=== PATIENT | male | born 1940 | race Native Hawaiian/Other Pacific Islander ===

== ENCOUNTER 2017-02-08 10:50 | Outpatient (CLI) | payer OTHER ==
[~2017-02-08 10:50] MED LIST: ALBU0.5N6 INH; ASA LO-DOSE81 MG PO; MELO-13 PO; METO5TAB38; NIACIN500 M2 PO; OXYB5TAB56; POT CHLORIDE10 ME1 PO; ROPINIROLE1 MG PO; SIMV40TA57 PO; SOTALOL AF120 MG PO; SPIR25TA66; UNITHROID50 MCG PO; XOPENEX HFA
[2017-02-08 11:35] LABS: POTASSIUM 3.3 mmol/L (3.6-5.2)
== END 2017-02-08 19:04 | disposition home or self-care (01) ==
LOC: LABW 10:50
PROVIDERS: Urology
DX: N39.0 Urinary tract infection, site not specified (principal); D41.01 Neoplasm of uncertain behavior of right kidney
CPT/HCPCS: 36415; 80053

== ENCOUNTER 2017-07-29 15:16 | Outpatient (CLI) | payer OTHER ==
[2017-07-29 16:23] LABS: POTASSIUM 3.9 mmol/L (3.6-5.2)
== END 2017-07-29 19:28 | disposition home or self-care (01) ==
LOC: LABW 15:16
PROVIDERS: Urology
DX: R31.29 Other microscopic hematuria (principal)
CPT/HCPCS: 36415; 80053

== ENCOUNTER 2017-08-13 08:54 | Outpatient (CLI) | payer OTHER ==
[2017-08-13 09:34] LABS: PLATELET COUNT 241 K/uL (142-355)
[2017-08-13 09:45] LABS: POTASSIUM 3.5 mmol/L (3.6-5.2)
== END 2017-08-13 19:02 | disposition home or self-care (01) ==
LOC: LABW 08:54
PROVIDERS: Internal Medicine Nephrology
DX: I10 Essential (primary) hypertension (principal); I25.10 Atherosclerotic heart disease of native coronary artery without angina pectoris; R31.29 Other microscopic hematuria
CPT/HCPCS: 36415; 80053; 80061; 81000; 82306; 82570; 83970; 84100; 84155; 85027

== ENCOUNTER 2017-08-31 11:44 | Outpatient (CLI) | payer OTHER | END 2017-08-31 20:24 | disposition home or self-care (01) | LOC: RAD 11:44 | DX: R06.02 Shortness of breath (principal) ==

== ENCOUNTER 2017-09-07 11:51 | Outpatient (CLI) | payer OTHER | END 2017-09-07 22:31 | disposition home or self-care (01) | LOC: CT 11:51 | DX: J98.4 Other disorders of lung (principal) ==

== ENCOUNTER 2017-09-20 13:25 | Outpatient (CLI) | payer OTHER | END 2017-09-20 22:29 | disposition home or self-care (01) | LOC: RESP 13:25 | DX: G47.36 Sleep related hypoventilation in conditions classified elsewhere (principal) | CPT/HCPCS: 36600; 82805 ==

== ENCOUNTER 2017-09-29 08:19 | Outpatient (CLI) | payer OTHER | END 2017-09-29 21:49 | disposition home or self-care (01) | LOC: RAD 08:19 | DX: Q79.1 Other congenital malformations of diaphragm (principal) ==

== ENCOUNTER 2018-02-22 09:55 | Outpatient (CLI) | payer OTHER ==
[2018-02-22 10:16] LABS: PLATELET COUNT 222 K/uL (142-355)
[2018-02-22 10:23] LABS: POTASSIUM 3.4 mmol/L (3.6-5.2)
== END 2018-02-22 22:40 | disposition home or self-care (01) ==
LOC: LABW 09:55
PROVIDERS: Internal Medicine Nephrology
DX: I10 Essential (primary) hypertension (principal); N18.3 Chronic kidney disease, stage 3 (moderate)
CPT/HCPCS: 36415; 80053; 82570; 84155; 85027

== ENCOUNTER 2019-12-06 12:53 | Outpatient (CLI) | payer OTHER ==
[2019-12-06 13:28] LABS: PLATELET COUNT 181 K/uL (142-355)
[2019-12-06 13:46] LABS: POTASSIUM 4.2 mmol/L (3.6-5.2)
== END 2019-12-06 19:07 | disposition home or self-care (01) ==
LOC: LABW 12:53
PROVIDERS: Internal Medicine Nephrology
DX: C64.9 Malignant neoplasm of unspecified kidney, except renal pelvis (principal); E66.8 Other obesity; G25.81 Restless legs syndrome; G47.33 Obstructive sleep apnea (adult) (pediatric); I10 Essential (primary) hypertension; I25.10 Atherosclerotic heart disease of native coronary artery without angina pectoris; I48.91 Unspecified atrial fibrillation; J44.9 Chronic obstructive pulmonary disease, unspecified; N40.0 Benign prostatic hyperplasia without lower urinary tract symptoms; R31.29 Other microscopic hematuria; Z79.01 Long term (current) use of anticoagulants; R20.2 Paresthesia of skin; Z90.5 Acquired absence of kidney
CPT/HCPCS: 36415; 80053; 80061; 81000; 82570; 83970; 84100; 84155; 85027

== ENCOUNTER 2020-03-19 12:17 | Outpatient (CLI) | payer OTHER ==
[2020-03-19 13:00] LABS: POTASSIUM 4.3 mmol/L (3.6-5.2)
[2020-03-19 13:04] LABS: PLATELET COUNT 176 K/uL (142-355)
== END 2020-03-19 23:35 | disposition home or self-care (01) ==
LOC: LABW 12:17
PROVIDERS: Internal Medicine Nephrology
DX: C64.9 Malignant neoplasm of unspecified kidney, except renal pelvis (principal); E66.8 Other obesity; G25.81 Restless legs syndrome; G47.33 Obstructive sleep apnea (adult) (pediatric); I10 Essential (primary) hypertension; I25.10 Atherosclerotic heart disease of native coronary artery without angina pectoris; I48.91 Unspecified atrial fibrillation; J44.9 Chronic obstructive pulmonary disease, unspecified; N40.0 Benign prostatic hyperplasia without lower urinary tract symptoms; R31.29 Other microscopic hematuria; Z79.01 Long term (current) use of anticoagulants; M10.9 Gout, unspecified; R20.2 Paresthesia of skin; Z90.5 Acquired absence of kidney
CPT/HCPCS: 36415; 80053; 82306; 84100; 84550; 85027

== ENCOUNTER 2020-03-28 12:52 | Outpatient (CLI) | payer OTHER | END 2020-03-28 21:04 | disposition home or self-care (01) | LOC: RAD 12:52 | PROVIDERS: ATTEND Internal Medicine Pulmonary Disease | DX: J98.6 Disorders of diaphragm (principal) ==

== ENCOUNTER 2020-06-10 09:04 | Outpatient (CLI) | payer OTHER | END 2020-06-10 18:59 | disposition home or self-care (01) | LOC: RESP 09:04 → RAD 09:04 → RESP 18:59 | PROVIDERS: ATTEND Internal Medicine Pulmonary Disease | DX: J98.4 Other disorders of lung (principal); J98.6 Disorders of diaphragm ==

== ENCOUNTER 2020-07-02 13:29 | Outpatient (CLI) | payer OTHER ==
[2020-07-02 13:45] LABS: PLATELET COUNT 179 K/uL (142-355)
[2020-07-02 13:54] LABS: POTASSIUM 4.7 mmol/L (3.6-5.2)
== END 2020-07-02 21:08 | disposition home or self-care (01) ==
LOC: LABW 13:29
PROVIDERS: ATTEND Internal Medicine Gastroenterology
DX: R19.7 Diarrhea, unspecified (principal)
CPT/HCPCS: 36415; 80053; 85027; 86140

== ENCOUNTER 2020-07-10 11:04 | Outpatient (CLI) | payer OTHER ==
[2020-07-10 12:06] LABS: POTASSIUM 4.2 mmol/L (3.6-5.2)
== END 2020-07-10 19:37 | disposition home or self-care (01) ==
LOC: LABW 11:04
PROVIDERS: ATTEND Internal Medicine Gastroenterology
DX: R19.7 Diarrhea, unspecified (principal)
CPT/HCPCS: 36415; 80048

== ENCOUNTER 2021-11-21 09:09 | Outpatient (CLI) | payer OTHER ==
[2021-11-21 09:30] LABS: PLATELET COUNT 127 K/uL (142-355)
== END 2021-11-21 19:59 | disposition home or self-care (01) ==
LOC: LAB 09:09
PROVIDERS: ATTEND Family Medicine
DX: G30.1 Alzheimer's disease with late onset (principal); I50.22 Chronic systolic (congestive) heart failure; I10 Essential (primary) hypertension
CPT/HCPCS: 80053; 83880; 85027